=== PATIENT | male | born 1990 | race African-American/Black ===

== ENCOUNTER 2017-04-17 19:50 | Emergency (ER) | payer OTHER ==
[~2017-04-17] VITALS: Ht 175.3 cm; Wt 63.6 kg
[2017-04-17] MEDS ORDERED: ADACEL/BOOSTRIX VACCINE (DIPHTH/PERTUSS/ACELL/TETANUS)0.5ML SYR (90715) IM ONE (20:45)
[2017-04-17] MEDS ORDERED: CEPHALEXIN 500 MG CAP PO ONE (20:45)
[2017-04-17] MEDS ORDERED: KEFL500C17 PO (20:55)
[2017-04-17 21:21] VITALS: BP 133/84
== END 2017-04-17 21:40 | disposition home or self-care (01) ==
LOC: M ED 19:50
DX: S61.213A Laceration without foreign body of left middle finger without damage to nail, initial encounter (principal); S61.215A Laceration without foreign body of left ring finger without damage to nail, initial encounter; W26.9XXA Contact with unspecified sharp object(s), initial encounter; Y92.59 Other trade areas as the place of occurrence of the external cause; Y93.89 Activity, other specified; Y99.0 Civilian activity done for income or pay; J45.909 Unspecified asthma, uncomplicated; Z87.891 Personal history of nicotine dependence

== ENCOUNTER → 2017-08-12 | Outpatient (CLI) | payer OTHER ==
[2017-08-12 20:58] LABS: BASO % 0.5 % (0.0-1.0); EOS # 0.1 10^3/uL (0.0-0.50); EOS % 1.1 % (0.0-3.0); HEMATOCRIT 43.2 % (42.0-52.0); HEMOGLOBIN 14.3 g/dl (14.0-18.0); IMMATURE GRANULOCYTE % 0.2 % (0-0); LYMPH # 2.1 10^3/uL (1.5-6.5); LYMPH % 26.2 % (24.0-44.0); MEAN CORPUSCULAR HGB CONC 33.1 g/dl (32.0-36.5); MEAN CORPUSCULAR VOLUME 90.8 fl (80.0-96.0); MONO # 0.4 10^3/uL (0.0-0.8); MONO % 5.3 % (0.0-5.0); NEUTROPHILS # 5.5 10^3/uL (1.8-7.7); NEUTROPHILS % 66.7 % (36.0-66.0); PLATELET COUNT, AUTOMATED 218 10^3/uL (150-450); RED BLOOD COUNT 4.76 10^6/uL (4.30-6.10); RED CELL DISTRIBUTION WIDTH 13.1 % (11.5-14.5); WHITE BLOOD COUNT 8.2 10^3/uL (4.0-10.0)
[2017-08-12 21:06] LABS: ALBUMIN 4.8 GM/DL (3.2-5.2); ALBUMIN/GLOBULIN RATIO 1.37 (1.00-1.93); ALKALINE PHOSPHATASE 58 U/L (45-117); ALT/SGPT 23 U/L (12-78); ANION GAP 6 MEQ/L (8-16); AST/SGOT 24 U/L (7-37); BILIRUBIN,TOTAL 1.1 MG/DL (0.2-1.0); BLOOD UREA NITROGEN 17 MG/DL (7-18); CALCIUM LEVEL 9.3 MG/DL (8.5-10.1); CARBON DIOXIDE LEVEL 29 MEQ/L (21-32); CHLORIDE LEVEL 104 MEQ/L (98-107); CREATININE FOR GFR 1.01 MG/DL (0.70-1.30); GLOMERULAR FILTRATION RATE > 60.0 (>60); GLUCOSE, FASTING 70 MG/DL (70-100); POTASSIUM SERUM 4.2 MEQ/L (3.5-5.1); SODIUM LEVEL 139 MEQ/L (136-145); THYROID STIMULATING HORMONE 0.973 uIU/ML (0.358-3.740); TOTAL PROTEIN 8.3 GM/DL (6.4-8.2)
== END ==
LOC: M WUC 13:36
DX: R47.02 Dysphasia (principal); S61.431A Puncture wound without foreign body of right hand, initial encounter; X58.XXXA Exposure to other specified factors, initial encounter; Y92.89 Other specified places as the place of occurrence of the external cause
CPT/HCPCS: 84443

== ENCOUNTER → 2017-08-19 | Outpatient (CLI) | payer OTHER ==
[~2017-08-19] MED LIST: ISOVUE-370 76% 100ML VIAL (Q9967) As Ordered
== END ==
LOC: M RAD 08:11
DX: J38.1 Polyp of vocal cord and larynx (principal); R13.10 Dysphagia, unspecified
CPT/HCPCS: Q9967

== ENCOUNTER 2017-11-08 11:32 | Day surgery (SDC) | payer OTHER, SELFPAY ==
[2017-11-08] MEDS: LR 1,000 ML IV (12:00)
[2017-11-08] MEDS ORDERED: fentaNYL 100 MCG/2 ML INJECTION (J3010) As Ordered ×2 (12:48→14:29)
[2017-11-08] MEDS ORDERED: MIDAZOLAM INJ 2 MG/2 ML VIAL (J2250) As Ordered (12:48)
[2017-11-08] MEDS ORDERED: LIDOCAINE W/EPINEPHRINE 1% 20ML VIAL As Ordered (12:50)
[2017-11-08] MEDS ORDERED: REMIFENTANIL 1MG 3ML VIAL As Ordered (13:05)
[2017-11-08] MEDS ORDERED: PROPOFOL 200 MG/20 ML VIAL As Ordered (13:06)
[2017-11-08] MEDS ORDERED: dexameTHASONE 4 MG/ML 1ML VIAL (J1100) As Ordered ×2 (13:28)
[2017-11-08] MEDS ORDERED: LIDOCAINE 2% INJ 100 MG/5 ML SDV (FOR ANES.) As Ordered (13:29)
[2017-11-08] MEDS: dexameTHASONE 4 MG/ML 1ML VIAL (J1100) IV (13:40)
[2017-11-08] MEDS: OXYMETAZOLINE NASAL SPRAY (AFRIN) As Ordered (13:47)
[2017-11-08] MEDS ORDERED: ROCURONIUM BROMIDE 50 MG/5 ML VIAL As Ordered (14:16)
[2017-11-08] MEDS ORDERED: PROPOFOL 500 MG/50 ML VIAL As Ordered ×2 (14:26)
[2017-11-08] MEDS ORDERED: ONDANSETRON 4MG/2ML VIAL (J2405) As Ordered (14:57)
[2017-11-08] MEDS ORDERED: SUGAMMADEX SODIUM 500 MG/5 ML VIAL (BRIDION) As Ordered (14:58)
[2017-11-08] MEDS ORDERED: ONDANSETRON 4MG/2ML VIAL (J2405) IV (16:00)
[2017-11-08] MEDS ORDERED: LR 1,000 ML IV ×2 (16:00)
[2017-11-08] MEDS ORDERED: fentaNYL 100 MCG/2 ML INJECTION (J3010) IV (16:00)
[2017-11-08] MEDS: HYDROmorphone HCL 1 MG/ML SYRINGE (J1170) IV ×5 (16:08→16:28)
[2017-11-08] MEDS: PERCOCET 5MG/325MG TAB PO (16:53)
== END 2017-11-08 17:25 | disposition home or self-care (01) ==
LOC: M SDC 17:25
DX: J38.1 Polyp of vocal cord and larynx (principal); R49.0 Dysphonia; K21.9 Gastro-esophageal reflux disease without esophagitis; F17.210 Nicotine dependence, cigarettes, uncomplicated; J45.909 Unspecified asthma, uncomplicated
CPT/HCPCS: 31541

== ENCOUNTER 2018-11-20 13:19 | Emergency (ER) | payer OTHER ==
[~2018-11-20] VITALS: Ht 172.7 cm; Wt 59.0 kg
[~2018-11-20 13:19] MED LIST changes: -ISOVUE-370 76% 100ML VIAL (Q9967) As Ordered; +KEFL500C17 PO
[2018-11-20 13:28] VITALS: BP 128/84
[2018-11-20] MEDS ORDERED: CLAR5TAB7 PO (13:45)
== END 2018-11-20 14:10 | disposition home or self-care (01) ==
LOC: M ED 13:19
DX: H93.8X1 Other specified disorders of right ear (principal); H92.01 Otalgia, right ear

== ENCOUNTER → 2019-09-25 | Outpatient (CLI) | payer OTHER ==
[~2019-09-25] MED LIST changes: +CLAR5TAB7 PO
--- NOTE | 2019-09-25 13:48 | REP ---
SHOULDER: REASON: Sprain. COMPARISON: No priors. FINDINGS: Three views of the shoulder were performed. The acromioclavicular and glenohumeral relationships are within normal limits. There is no acute fracture or destructive osseous lesion. Electronically Signed by Rock Vizcarra DO 09/25/2019 02:45 P
--- NOTE | 2019-09-25 13:54 | REP ---
REASON: Neck pain for several years. No history of trauma. Vertebral body height and alignment is within normal limits. The facet joints are well aligned bilaterally. The disc spaces are symmetric throughout. There is no limitation of flexion or extension. The intervertebral foramina are ample bilaterally. The dens cannot be effectively evaluated secondary to the superimposition of osseous structures and/or dentition on all views. IMPRESSION: No abnormalities noted with limitations as described above. Electronically Signed by Rock Vizcarra DO 09/25/2019 02:45 P
== END ==
LOC: M WUC 11:19
PROVIDERS: ATTEND Physician Assistant
DX: S13.4XXA Sprain of ligaments of cervical spine, initial encounter (principal); S43.401A Unspecified sprain of right shoulder joint, initial encounter; W18.30XA Fall on same level, unspecified, initial encounter; Y92.9 Unspecified place or not applicable

== ENCOUNTER → 2020-04-28 | Outpatient (CLI) | payer OTHER ==
[~2020-04-28] MED LIST changes: +ISOVUE-370 76% 100ML VIAL As Ordered ONE
--- NOTE | 2020-04-28 17:27 | REPVR ---
PROCEDURE INFORMATION: Exam: CT Neck With Contrast Exam date and time: 04/28/2020 5:04 PM Age: 29 years old Clinical indication: Mass, lump, or swelling in neck; Additional info: Swelling, mass TECHNIQUE: Imaging protocol: Computed tomography images of the neck with intravenous contrast. Radiation optimization: All CT scans at this facility use at least one of these dose optimization techniques: automated exposure control; mA and/or kV adjustment per patient size (includes targeted exams where dose is matched to clinical indication); or iterative reconstruction. Contrast material: IOSVUE 370; Contrast volume: 75 ml; Contrast route: INTRAVENOUS (IV); COMPARISON: CT Neck with contrast 08/19/2017 8:38 AM FINDINGS: Paranasal sinuses: There is mild sinus mucosal disease, with no air-fluid level identified. Nasopharynx: Unremarkable. Oropharynx: Unremarkable. No significant tonsillar enlargement. Hypopharynx: Unremarkable. Larynx: Unremarkable. Normal epiglottis. Retropharyngeal space: Unremarkable. Submandibular/Parotid glands: Normal. Glands are normal in size. Thyroid: Normal. No enlarged or calcified nodules. Lymph nodes: Unremarkable. No lymphadenopathy. Trachea: Visualized trachea is unremarkable. Lungs: Unremarkable as visualized. Bones/joints: Unremarkable. No acute fracture. Soft tissues: Unremarkable. No significant soft tissue swelling. IMPRESSION: No acute abnormality identified. Electronically signed by: Pari Berumen On 04/28/2020 17:27:09 PM
== END ==
LOC: M RAD 16:44
PROVIDERS: ATTEND Otolaryngology
DX: R22.1 Localized swelling, mass and lump, neck (principal)
CPT/HCPCS: 70491; Q9967

== ENCOUNTER 2020-04-30 14:06 | Emergency (ER) | payer OTHER ==
[~2020-04-30] VITALS: Ht 170.2 cm; Wt 62.1 kg
[~2020-04-30 14:06] MED LIST changes: -ISOVUE-370 76% 100ML VIAL As Ordered ONE
[2020-04-30] MEDS ORDERED: KETOROLAC 30 MG/ML 1ML VIAL IV ONE (15:15)
[2020-04-30 15:34] LABS: BASO % 0.6 % (0.0-1.0); EOS # 0.3 10^3/uL (0.0-0.5); EOS % 4.1 % (0.0-3.0); HEMOGLOBIN 14.6 g/dl (13.5-17.5); LYMPH # 1.6 10^3/uL (1.5-5.0); LYMPH % 26.3 % (24.0-44.0); MEAN CORPUSCULAR HEMOGLOBIN 29.7 pg (27.0-33.0); MEAN CORPUSCULAR HGB CONC 32.4 g/dl (32.0-36.5); MEAN CORPUSCULAR VOLUME 91.5 fl (80.0-96.0); MONO # 0.4 10^3/uL (0.0-0.8); NEUTROPHILS # 3.8 10^3/uL (1.5-8.5); NEUTROPHILS % 61.8 % (36.0-66.0); PLATELET COUNT, AUTOMATED 204 10^3/uL (150-450); RED BLOOD COUNT 4.92 10^6/uL (4.30-6.10); WHITE BLOOD COUNT 6.2 10^3/uL (4.0-10.0)
--- NOTE | 2020-04-30 15:39 | REPVR ---
PROCEDURE INFORMATION: Exam: XR Right Shoulder Exam date and time: 04/30/2020 3:09 PM Age: 29 years old Clinical indication: Pain; Shoulder; Right; Additional info: Right pain, no known injury TECHNIQUE: Imaging protocol: XR Right shoulder. Views: 2 or more views. COMPARISON: CR SHOULDER COMPLETE 09/25/2019 11:30 AM FINDINGS: Bones/joints: No acute fracture. No osseous destruction. No periosteal reaction. No osseous erosion. No malalignment. Soft tissues: Unremarkable as visualized. IMPRESSION: Normal radiographic examination of the right shoulder. Electronically signed by: Shay Olguin On 04/30/2020 15:39:38 PM
--- NOTE | 2020-04-30 15:47 | REPVR ---
PROCEDURE INFORMATION: Exam: XR Chest, 2 Views Exam date and time: 04/30/2020 2:56 PM Age: 29 years old Clinical indication: Chest discomfort TECHNIQUE: Imaging protocol: XR of the chest Views: 2 views. COMPARISON: CT Neck with contrast 04/28/2020 5:12:23 PM FINDINGS: Lungs: No pulmonary mass, consolidation, or edema. Pleural space: No pleural effusion. No pneumothorax. Heart/Mediastinum: The cardiomediastinal silhouette is within normal limits for size and contour. Bones/joints: No acute osseous abnormality. IMPRESSION: No radiographic evidence of acute cardiopulmonary disease. Electronically signed by: Shay Olguin On 04/30/2020 15:47:09 PM
[2020-04-30 15:53] LABS: ERYTHROCYTE SEDIMENTATION RATE 2 mm/hr (0-15)
[2020-04-30 16:05] LABS: ALBUMIN 4.3 GM/DL (3.2-5.2); BILIRUBIN,DIRECT 0.1 MG/DL (0.0-0.2); BILIRUBIN,TOTAL 0.5 MG/DL (0.2-1.0); C REACTIVE PROTEIN QUANTITATIV 0.32 MG/DL (0.00-0.30); TOTAL PROTEIN 7.9 GM/DL (6.4-8.2)
[2020-04-30 16:20] VITALS: BP 131/87
--- NOTE | 2020-05-01 19:13 | ECGEPIP ---
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
== END 2020-04-30 16:42 | disposition home or self-care (01) ==
LOC: M ED 14:06
DX: M25.511 Pain in right shoulder (principal); M79.10 Myalgia, unspecified site; J45.909 Unspecified asthma, uncomplicated; Z79.899 Other long term (current) drug therapy

== ENCOUNTER 2020-09-05 21:49 | Emergency (ER) | payer OTHER ==
[~2020-09-05] VITALS: Ht 172.7 cm; Wt 65.9 kg
[2020-09-05 21:49] VITALS: BP 139/77
--- OUTSIDE RECORDS SUMMARY | 2020-09-05 21:55 | CCD | Continuity of Care Document ---
Author Author Nitesh JEREZ MD Organization Unknown Address [address] [facility] [address] [place] [address] Phone [phone] Care Team Providers Care Chemical Compounder Name Role Phone Elder Veronica AUTM Dorota Garcia D.O. AUTM Problems Active Problems Provider Date Allergic asthma without status asthmaticus Inocencio Jerez MD Onset: 2017 Localized swelling, mass and lump, neck Inocencio Jerez MD Onset: 11/15/2017 Difficulty speaking Inocencio Jerez MD Onset: 11/15/2017 Social History Type Date Description Comments Sex Unknown ETOH Use 1 A Month Tobacco Use Start: Unknown Non Smoker Allergies, Adverse Reactions, Alerts Description No Known Drug Allergies Medications Active Medications SIG Qnty Indications Ordering Provide r Date Fluticasone Propionate 50mcg/Act Suspension 2 sprays to each nostril daily 48gm J31.0 Inocencio rapp MD 06/24/2020 Saline Nasal [place] 0.65% Solution 2 sprays to each nostril three times a day and as needed 264ml J31.0 Inocencio Jerez MD 06/24/[address] 20 mg by mouth daily 90caps K21.9 Inocencio Jerez MD 04/22/2020 History Medications No Active Medications Unknown 12/2019 - 04/22/2020 Immunizations Description No Information Available Vital Signs Date Vital Result Comment 04/22/2020 1:41pm Height 68 inches 5'8" Weight 150.00 lb BMI (Body Mass Index) 22.8 kg/m2 [place] Body Weight 154 lb Weight 68.040 kg BSA (Body Surface Area) 1.81 m2 2017 1:53pm Height 68 inches 5'8" Weight 135.00 lb BMI (Body Mass Index) 20.5 kg/m2 [place] Body Weight 154 lb Weight 61.236 kg BSA (Body Surface Area) 1.73 m2 Results Description No Information Available Procedures Date Code Description Status 04/22/2020 93890 Laryngoscopy Flexible Fiberoptic Diagnostic Completed Medical Devices Description No Information Available Encounters Type Date Location Provider Dx Diagnosis Office Visit 04/22/2020 1:30p [facility] Inocencio Jerez MD J34.2 Deviated nasal septum R22.1 Localized swelling, mass and lump, neck K21.9 Gastro-esophageal reflux dis ease without esophagitis Assessments Date Code Description Provider 06/24/2020 R22.1 Localized swelling, mass and lum p, neck Inocencio Jerez MD 06/24/2020 J31.0 Chronic rhinitis Inocencio Jerez MD 06/24/2020 H69.93 Unspecified Eustachian tube diso rder, bilateral Inocencio Jerez MD 04/22/2020 J34.2 Deviated nasal septum Inocencio rapp MD 04/22/2020 R22.1 Localized swelling, mass and lum p, neck Inocencio Jerez MD 04/22/2020 K21.9 Gastro-esophageal reflux disease without esophagitis Inocencio Jerez MD Plan of Treatment 06/24/2020 - Inocencio Jerez MD* R22.1 Localized swelling, mass and lump, neck * J31.0 Chronic rhinitis* New Medication:* Fluticasone Propionate 50 mcg/Act - 2 sprays to each nostril daily * Saline Nasal [place] 0.65 % - 2 sprays to each nostril three times a day and as needed * H69.93 Unspecified Eustachian tube disorder, bilateral Functional Status Description No Information Available Mental Status Description No Information Available Referrals Description No Information Available
--- OUTSIDE RECORDS SUMMARY | 2020-09-05 21:55 | CCD ---
Author Author [facility] Organization [facility] Address Unknown Phone Unavailable Care Team Providers Care Rural Health Consultant Name Role Phone Hina JEREZ MD Unavailable Unavailable Hina JEREZ MD Unavailable Unavailable Hina JEREZ MD Unavailable Unavailable Hina JEREZ MD Unavailable Unavailable Hina JEREZ MD Unavailable Unavailable Hina JEREZ MD Unavailable Unavailable Hina JEREZ MD Unavailable Unavailable Hina JEREZ MD Unavailable Unavailable Hina JEREZ MD Unavailable Unavailable Hina JEREZ MD Unavailable Unavailable Hina JEREZ MD Unavailable Unavailable Hina JEREZ MD Unavailable Unavailable Hina JEREZ MD Unavailable Unavailable Hina JEREZ MD Unavailable Unavailable Hina JEREZ MD Unavailable Unavailable Hina JEREZ MD Unavailable Unavailable Hina JEREZ MD Unavailable Unavailable Hina JEREZ MD Unavailable Unavailable Hina JEREZ MD Unavailable Unavailable Hina JEREZ MD Unavailable Unavailable ELYSE, C GISEL MD Unavailable Unavailable ELYSE, C GISEL MD Unavailable Unavailable ELYSE, C GISEL MD Unavailable Unavailable ELYSE, C GISEL MD Unavailable Unavailable ELYSE, C GISEL MD Unavailable Unavailable ELYSE, C GISEL MD Unavailable Unavailable ELYSE, C GISEL MD Unavailable Unavailable ELYSE, C GISEL MD Unavailable Unavailable ELYSE, C GISEL MD Unavailable Unavailable ELYSE, C GISEL MD Unavailable Unavailable ELYSE, C GISEL MD Unavailable Unavailable ELYSE, C GISEL MD Unavailable Unavailable ELYSE, C GISEL MD Unavailable Unavailable ELYSE, C GISEL MD Unavailable Unavailable ELYSE, C GISEL MD Unavailable Unavailable LETTIERE, A JUSTINA PA Unavailable Unavailable LETTIERE, A JUSTINA PA Unavailable Unavailable LETTIERE, A JUSTINA PA Unavailable Unavailable LETTIERE, A JUSTINA PA Unavailable Unavailable LETTIERE, A JUSTINA PA Unavailable Unavailable LETTIERE, A JUSTINA PA Unavailable Unavailable LETTIERE, A JUSTINA PA Unavailable Unavailable LETTIERE, A JUSTINA PA Unavailable Unavailable LETTIERE, A JUSTINA PA Unavailable Unavailable LETTIERE, A JUSTINA PA Unavailable Unavailable LETTIERE, A JUSTINA PA Unavailable Unavailable LETTIERE, A JUSTINA PA Unavailable Unavailable LETTIERE, A JUSTINA PA Unavailable Unavailable LETTIERE, A JUSTINA PA Unavailable Unavailable LETTIERE, A JUSTINA PA Unavailable Unavailable LETTIERE, A JUSTINA PA Unavailable Unavailable LETTIERE, A JUSTINA PA Unavailable Unavailable LETTIERE, A JUSTINA PA Unavailable Unavailable LETTIERE, A JUSTINA PA Unavailable Unavailable LETTIERE, A JUTSINA PA Unavailable Unavailable LETTIERE, A JUSTINA PA Unavailable Unavailable LETTIERE, A JUSTINA PA Unavailable Unavailable LETTIERE, A JUSTINA PA Unavailable Unavailable LETTIERE, A JUSTINA PA Unavailable Unavailable LETTIERE, A JUSTINA PA Unavailable Unavailable LETTIERE, A JUSTINA PA Unavailable Unavailable LETTIERE, A JUSTINA PA Unavailable Unavailable LETTIERE, A JUSTINA PA Unavailable Unavailable LETTIERE, A JUSTINA PA Unavailable Unavailable Re-disclosure Warning The records that you are about to access may contain information from federally-assisted alcohol or drug abuse programs. If such information is present, then the following federally mandated warning applies: This information has been disclosed to you from records protected by federal confidentiality rules (42 CFR part 2). The federal rules prohibit you from making any further disclosure of this information unless further disclosure is expressly permitted by the written consent of the person to whom it pertains or as otherwise permitted by 42 CFR part 2. A general authorization for the release of medical or other information is NOT sufficient for this purpose. The Federal rules restrict any use of the information to criminally investigate or prosecute any alcohol or drug abuse patient.The records that you are about to access may contain highly sensitive health information, the redisclosure of which is protected by Article 27-F of the [facility] Public Health law. If you continue you may have access to information: Regarding HIV / AIDS; Provided by facilities licensed or operated by the [facility] Office of Mental Health; or Provided by the [facility] Office for People With Developmental Disabilities. If such information is present, then the following [facility] mandated warning applies: This information has been disclosed to you from confidential records which are protected by state law. State law prohibits you from making any further disclosure of this information without the specific written consent of the person to whom it pertains, or as otherwise permitted by law. Any unauthorized further disclosure in violation of state law may result in a fine or custodial sentence or both. A general authorization for the release of medical or other information is NOT sufficient authorization for further disc losure. Family History Family Member Name Family Member Gender Family Member Status Date o f Status Description Data Source(s) Unknown Unknown Problem [facility] ([facility], ) Unknown Unknown Problem [facility] ([facility]) Encounters Encounter Providers Location Date Indications Data Source(s ) Outpatient Attender: GISEL Jerez/Juliane/Bo/Fern weinberg 04/22/2020 01:30:00 PM EDT [facility] ([facility], ) Outpatient 10/18/2019 04:28:00 AM EDT [facility] Outpatient Attender: JUSTINA hall 08/31/2019 12:00:00 PM EST [facility] ([facility]) Medications Medication Brand Name Start Date Product Form Dose Route Admi nistrative Instructions Pharmacy Instructions Status Indications Reaction Description Data Source(s) Fluticasone Propionate Fluticasone Propionate 06/24/2020 12:00:[address] active [facility] ([facility], ) Sodium Chloride 0.111 MEQ/ML Nasal Solution Saline Nasal Spr ay 06/24/2020 12:00:00 AM EST active M EDENT ([facility], ) Omeprazole 20 MG Delayed Release Oral Capsule Omeprazole 04/22/2020 12:00:00 AM EDT ORAL active MED[facility] ([facility], ) No Active Medications 04/22/2020 12:00:00 AM EDT completed MED[facility] ([facility], ) Insurance Providers Payer name Policy type / Coverage type Policy ID Covered green party ID Covered green party's relationship to frias Policy Frias Plan Information [facility] COMMUNITY PLAN [place] [id number] SP [id number] [facility]) O [id number] S [id number] [facility] COMMUNITY [facility] [place] [id number] SP [id number] [facility]([place]) O [id number] S [id number] SELF PAY ONLY [id number] SP [id number] [facility] [id number] SP [id number] AETNA [id number] SP [id number] Aetna Commercial [id number] Self [id number] Aetna Ppo/Pos/Nap/MC Commercial [id number] Self [id number] [place]ANTRE[place] WC O [id number] S [id number] Aetna Commercial [id number] Self [id number] Aetna Commercial [id number] Self [id number] [place] [id number] S [id number] [employer] [place] [id number] SP [id number] Aetna Ppo/Pos/Nap/MC Commercial [id number] Self [id number] [employer] [place] [id number] SP [id number] Aetna Ppo/Pos/Nap/MC Commercial [id number] Self [id number] Aetna Ppo/Pos/Nap/MC Commercial [id number] Self 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 [id number] SP [id number] [employer] [place] [id number] SP [id number] Aetna Ppo/Pos/Nap/MC Medigap Part B Self Sentry Insurance Workers Compensation Self Surgeries/Procedures Procedure Description Date Indications Data Source(s) LARYNGOSCOPY FLEXIBLE FIBEROPTIC DIAGNOSTIC 04/22/2020 12:00:00 AM EDT [facility] ([facility]) Vital Signs ID Date Data Source UNK Name Value Range Interpretation Code Description Data Source(s) Body surface area Derived from formula 1.81 m2 1.81 m2 [facility] ([facility]) Body weight 68.040 kg 68.040 kg [facility] ([facility]) [place] body weight 154 [lb_av] 154 [lb_av] MEDEN T ([facility]) Body mass index (BMI) [Ratio] 22.8 kg/m2 22.8 k g/m2 [facility] ([facility]) Body weight 150.00 [lb_av] 150.00 [facility]_av] [facility] Body height 68 [in_i] 68 [in_i] [facility] ([facility]) 5'8" Body mass index (BMI) [Ratio] 19.0 kg/m2 19.0 k g/m2 [facility] ([facility]) Body height 68 [in_i] 68 [in_i] [facility] ([facility]) 5'8" Body weight 125.00 [lb_av] 125.00 [lb_av] MEDEN T ([facility]) Body temperature 99.2 [degF] 99.2 [degF] [facility] ([facility]) Oxygen saturation in Arterial blood by Pulse oximetry 99 % 99 % [facility] ([facility]) Respiratory rate 16 /min 16 /min [facility] ( [facility]) Heart rate 94 /min 94 /min [facility] ([facility], [facility]) Diastolic blood pressure 88 mm[Hg] 88 mm[Hg] [facility] ([facility]) Systolic blood pressure 124 mm[Hg] 124 mm[Hg] [facility])
[2020-09-05] MEDS ORDERED: BACITRACIN OINTMENT 30GM TUBE TOP ONE (22:45)
[2020-09-05] MEDS ORDERED: NORCO 5/325MG TABLET (BULK FOR ED) PO ONE (22:45)
[2020-09-05] MEDS ORDERED: HYDR-3715 PO (22:46)
[2020-09-05] MEDS ORDERED: BACI28.43 TOP (22:46)
--- OUTSIDE RECORDS SUMMARY | 2020-09-05 22:51 | CCD ---
Author Author [facility] Organization [facility] Address Unknown Phone Unavailable Care Team Providers Care Color Card Maker Name Role Phone Hina JEREZ MD Unavailable [...] C GISEL MD Unavailable Unavailable ELYSE, C GISLE MD Unavailable Unavailable ELYSE, C GISEL MD [...] is protected by Article 27-F of the [facility] Public Health law. If you continue you may have access to information: Regarding HIV / AIDS; Provided by facilities licensed or operated by the [facility] Office of Mental Health; or Provided by the [facility] Office for People With Developmental Disabilities. If such information is present, then the following [facility] mandated warning applies: This information has [...] law may result in a fine or mcc sentence or both. A general authorization for the release of medical or other information is NOT sufficient authorization for further disc losure. Family History Family Member Name Family Member Gender Family Member Status Date o f Status Description Data Source(s) Unknown Unknown Problem [facility] ([facility], ) Unknown Unknown Problem [facility] ([facility]) Encounters Encounter Providers Location Date Indications Data Source(s ) Outpatient Attender: GISEL Jerez/Juliane/Bo/Fern weinberg 04/22/2020 01:30:00 PM EDT [facility] ([facility], ) Outpatient 10/18/2019 04:28:00 AM EDT [facility] Outpatient Attender: JUSTINA hall 08/31/2019 12:00:00 PM EST [facility] ([facility]) Medications Medication Brand Name Start Date Product Form Dose Route Admi nistrative Instructions Pharmacy Instructions Status Indications Reaction Description Data Source(s) Fluticasone Propionate Fluticasone Propionate 06/24/2020 12:00:[address] active [facility] ([facility], ) Sodium Chloride 0.111 MEQ/ML Nasal Solution Saline Nasal Spr ay 06/24/2020 12:00:00 AM EST active M EDENT ([facility], ) Omeprazole 20 MG Delayed Release Oral Capsule Omeprazole 04/22/2020 12:00:00 AM EDT ORAL active [facility] ([facility], ) No Active Medications 04/22/2020 12:00:00 AM EDT completed [facility] ([facility], ) Insurance Providers Payer name Policy type / Coverage type Policy ID Covered green party ID Covered green party's relationship to frias Policy Frias Plan Information [facility] [id number] SP [id number] [facility]([place]) O [id number] S [id number] [facility] [id number] SP [id number] [facility]([place]) O [id number] S [id number] SELF PAY ONLY [id number] SP [id number] [facility] [id number] SP [id number] AETNA [id number] SP [id number] Aetna Commercial [id number] Self [id number] Aetna Ppo/Pos/Nap/MC Commercial [id number] Self [id number] POLLY [place]ANTRELL WC O [id number] S [id number] Aetna Commercial [id number] Self [id number] Aetna Commercial [id number] Self [id number] [employer] [place] O [id number] S [id number] [employer] [place] [id number] SP [id number] Aetna Ppo/Pos/Nap/MC Commercial [id number] Self [id number] [employer] [place] [id number] SP [id number] Aetna Ppo/Pos/Nap/MC Commercial [id number] Self [id number] Aetna Ppo/Pos/Nap/MC Commercial [id number] Self [id number] POLLY CANTRELL WORKER COMP [id number] SP [id number] [employer] [place] [id number] SP [id number] Aetna Ppo/Pos/Nap/MC Medigap Part B Self Sentry Insurance Workers Compensation Self Surgeries/Procedures Procedure Description Date Indications Data Source(s) LARYNGOSCOPY FLEXIBLE FIBEROPTIC DIAGNOSTIC 04/22/2020 12:00:00 AM EDT [facility] ([facility]) Vital Signs ID Date Data Source UNK Name Value Range Interpretation Code Description Data Source(s) Body surface area Derived from formula 1.81 m2 1.81 m2 [facility] ([facility]) Body weight 68.040 kg 68.040 kg [facility] ([facility]) [place] body weight 154 [lb_av] 154 [lb_av] MED[facility] T ([facility]) Body mass index (BMI) [Ratio] 22.8 kg/m2 22.8 k g/m2 [facility] ([facility]) Body weight 150.00 [lb_av] 150.00 [[facility]_av] [facility] Body height 68 [in_i] 68 [in_i] [facility] ([facility]) 5'8" Body mass index (BMI) [Ratio] 19.0 kg/m2 19.0 k g/m2 [facility] ([facility]) Body height 68 [in_i] 68 [in_i] [facility] ([facility]) 5'8" Body weight 125.00 [lb_av] 125.00 [lb_av] MED[facility] T ([facility], [facility]) Body temperature 99.2 [degF] 99.2 [degF] [facility] ([facility]) Oxygen saturation in Arterial blood by Pulse oximetry 99 % 99 % [facility] ([facility], [facility]) Respiratory rate 16 /min 16 /min [facility] ( [facility], [facility]) Heart rate 94 /min 94 /min [facility] ([facility], [facility]) Diastolic blood pressure 88 mm[Hg] 88 mm[Hg] [facility] ([facility], [facility]) Systolic blood pressure 124 mm[Hg] 124 mm[facility]Hg] [facility])
== END 2020-09-05 23:09 | disposition home or self-care (01) ==
LOC: M ED 21:49
DX: T23.201A Burn of second degree of right hand, unspecified site, initial encounter (principal); X10.2XXA Contact with fats and cooking oils, initial encounter; Y92.9 Unspecified place or not applicable; Y93.G1 Activity, food preparation and clean up; Y99.0 Civilian activity done for income or pay; F17.200 Nicotine dependence, unspecified, uncomplicated

== ENCOUNTER 2020-10-20 20:17 | Emergency (ER) | payer OTHER ==
[~2020-10-20] VITALS: Ht 172.7 cm; Wt 64.9 kg
[~2020-10-20 20:17] MED LIST changes: +BACI28.43 TOP; +HYDR-3715 PO
[2020-10-20 20:18] VITALS: BP 141/95
[2020-10-20] MEDS ORDERED: FLUTISP (20:23)
[2020-10-21] MEDS ORDERED: FLUORESCEIN OPHTH 1 MG STRIP OS ONE (01:00)
[2020-10-21] MEDS ORDERED: PROPARACAINE 0.5% OPHTH SOL 15ML OS ONE (01:00)
[2020-10-21] MEDS ORDERED: METAL LOCK LOOP XX ONE (02:17)
== END 2020-10-21 02:47 | disposition home or self-care (01) ==
LOC: M ED 20:17
DX: T15.12XA Foreign body in conjunctival sac, left eye, initial encounter (principal); Y92.098 Other place in other non-institutional residence as the place of occurrence of the external cause; F17.200 Nicotine dependence, unspecified, uncomplicated; Z79.899 Other long term (current) drug therapy

== ENCOUNTER 2020-11-13 10:15 | Outpatient (RCR) | payer OTHER ==
[~2020-11-13 10:15] MED LIST changes: +FLUTISP
== END 2020-11-14 ==
LOC: M PT 10:15
PROVIDERS: ATTEND Family Medicine
DX: M25.611 Stiffness of right shoulder, not elsewhere classified (principal)

== ENCOUNTER 2020-12-11 08:00 | Outpatient (RCR) | payer OTHER | END 2020-12-15 | LOC: M PT 08:00 | PROVIDERS: ATTEND Family Medicine | DX: M25.611 Stiffness of right shoulder, not elsewhere classified (principal) ==

== ENCOUNTER → 2021-01-05 | Outpatient (CLI) | payer OTHER ==
--- NOTE | 2021-01-05 14:57 | REPPI ---
INDICATION: M25.531 RIGHT WRIST PAIN. COMPARISON: None. TECHNIQUE: Five views including scaphoid views FINDINGS: There is no acute fracture or destructive osseous lesion. IMPRESSION: Within normal limits <Electronically signed by Rock Vizcarra > 01/05/21 [id number]
== END ==
LOC: M PLAIMG 13:58
PROVIDERS: ATTEND Family Medicine
DX: M25.531 Pain in right wrist (principal)

== ENCOUNTER → 2021-03-10 | Outpatient (CLI) | payer OTHER ==
--- NOTE | 2021-03-10 16:46 | REP ---
INDICATION: IMPINGEMENT SYNDROME RT SHOULDER, CATCHING IN SHOU. COMPARISON: None. TECHNIQUE: Coronal oblique T1 and fat suppressed T2. Sagittal oblique fat suppressed T2. Axial [id number] and T2 FLASH. FINDINGS: There is mild hypertrophic degenerative change seen involving the acromioclavicular joint. The acromion process is a minimal type 2. Patchy and linear T2 hyper signal is seen within the supraspinatus tendon without evidence of musculotendinous retraction or muscular atrophy. Normal appearing low signal is seen throughout the subscapularis, infraspinatus, and teres minor tendons. The biceps tendon resides within the bicipital groove. There is no glenohumeral joint effusion or abnormal fluid in the subcoracoid recess. The coracohumeral and coracoacromial ligaments appear thickened. Tiny T2 hyper signal foci are seen in the superolateral humeral head subjacent to the insertion of the supraspinatus tendon. IMPRESSION: 1. There is supraspinatus tendinitis/tendinosis. There is no evidence of a full-thickness tear. 2. Although there is mild AC joint DJD and a minimal type 2 acromion process there is evidence of ligamentous thickening as described above suggesting the clinical diagnosis of impingement syndrome. 3. Early cystic degenerative changes humeral head as described above. 4. Other findings as described above. If labral pathology is of clinical concern consider follow-up with shoulder MRI arthrography. <Electronically signed by Rock Vizcarra > 03/10/21 [id number]
== END ==
LOC: M PLAIMG 15:05
PROVIDERS: ATTEND Orthopaedic Surgery Sports Medicine
DX: M75.41 Impingement syndrome of right shoulder (principal)

== ENCOUNTER → 2021-04-27 | Outpatient (CLI) | payer OTHER | LOC: M LABSMTC 09:54 | PROVIDERS: ATTEND Anesthesiology | DX: Z01.818 Encounter for other preprocedural examination (principal); Z11.52 Encounter for screening for COVID-19 ==

== ENCOUNTER 2021-04-29 09:43 | Day surgery (SDC) | payer OTHER ==
[~2021-04-29] VITALS: Ht 172.7 cm; Wt 57.5 kg
[~2021-04-29 09:43] MED LIST changes: +LIDOCAINE 1% MDV 20ML VIAL SQ PRN; +LIDOCAINE 2% 100MG/5ML SDV (FOR ANES.) As Ordered ONE; +LR 1,000 ML IV ONE; +MIDAZOLAM INJ 2MG/2ML VIAL (J2250 PER 1MG) As Ordered ONE; +MIDAZOLAM INJ 2MG/2ML VIAL (J2250 PER 1MG) IV PRN; +ONDANSETRON 4MG/2ML VIAL As Ordered ONE; +ceFAZolin SOD 2 GM in IV 1 EA IV ONE; +dexameTHASONE 4 MG/ML 1ML VIAL (J1100 PER 1MG) As Ordered ONE; +fentaNYL 100 MCG/2 ML INJECTION (J3010) As Ordered ONE; +fentaNYL 100 MCG/2 ML INJECTION (J3010) IV PRN; +propofoL 200 MG/20 ML VIAL As Ordered ONE
[2021-04-29] MEDS ORDERED: EPINEPHrine INJ 1 MG/ML 1ML AMP XX ONE (10:50)
[2021-04-29] MEDS ORDERED: ROPIvacaine 0.5% 30ML INJECTION (J2795 PER 1MG) XX ONE (10:50)
[2021-04-29] MEDS ORDERED: LIDOCAINE 1% MDV 20ML VIAL XX ONE (10:50)
[2021-04-29] MEDS ORDERED: EPINEPHrine 1MG/ML INJ 30ML MD-VIAL As Ordered ONE (10:57)
[2021-04-29] MEDS ORDERED: LIDOCAINE 1% SDV 30ML VIAL As Ordered ONE (10:57)
[2021-04-29] MEDS ORDERED: dexameTHASONE 4 MG/ML 1ML VIAL (J1100 PER 1MG) As Ordered ONE (11:05)
[2021-04-29] MEDS ORDERED: ACETAMINOPHEN 1000MG 100ML IV BTL (OFIRMEV) (J0131 PER 10MG) As Ordered ONE (12:08)
[2021-04-29] MEDS ORDERED: KETOROLAC 60MG 2ML VIAL As Ordered ONE (12:10)
--- NOTE | 2021-04-29 13:12 | ROOPDOC ---
[facility] Report Of Operation Report of Operation DATE OF PROCEDURE: 04/29/21 PREPROCEDURE DIAGNOSES: Right shoulder impingement. POSTPROCEDURE DIAGNOSES: Same. PROCEDURE PERFORMED: Right shoulder arthroscopy, subacromial decompression. SURGEON: Dr. Nafisa Jaramillo MD BENCH EXAMINER: None ANESTHESIA: General anesthesia and preoperative block Dr Taylor. ESTIMATED BLOOD LOSS: Approximately 50 mL. COMPLICATIONS: None. REMARKS: None. FINDINGS: Moderate to high amount of bursitis and type II acromion SPECIMENS REMOVED: None PROCEDURE NOTE: This 30-year-old man had signs and symptoms consistent with right shoulder impingement. We had a discussion about the pros and cons risks and benefits in preoperative holding of conservative management versus proceeding with right shoulder arthroscopy subacromial decompression. He wished to go ahead. I marked the right upper extremity. He had no further questions.. DESCRIPTION OF PROCEDURE: Patient was brought to the operating room theater. He was placed supine on the operating room table. 2 g IV Ancef was administered prior to the start of the case. General anesthesia was induced. Patient placed right lateral decubitus with the aid of the beanbag positioner. SCDs on the legs. Axillary roll used. All bony prominences appropriately padded. Upper extremity prepped and draped in the usual sterile fashion Allowing over 3 minutes drying time prior to draping. 10 pounds of traction with the arm in abduction about 45 degrees was used. Preoperative timeout performed to confirm the site patient and the surgery. Began by making a posterior incision attempting to insert the arthroscope into the intra-articular space. This proved a little bit difficult. As such I first entered the subacromial space. Made an accessory lateral incision. I performed a complete bursectomy to the lateral gutters. There is a moderate to high amount of mostly inflammatory bursitis. I used shaving instruments as well as an ablator. I removed any soft tissue from the undersurface anterolateral acromion including taking down the CA ligament. There is moderate downsloping. I performed a subacromial decompression with a ijeoma for approximately 4 mm down to flat margins. I probed the superior surface of the rotator cuff. No obvious tears fraying or other damage. I then used upward slight pressure at the humerus, and then inserted the arthroscope into the intra-articular portion of the shoulder. I had to make an accessory posterior incision about 1 cm inferior to the original incision. I performed a thorough diagnostic arthroscopy. I used inside-out spinal needle localization to perform an accessory anterior portal through the rotator interval just posterior to the biceps tendon. There was a sublabral foramen from the 1 to 3 o'clock position. This appeared stable. No obvious labral tears. Cartilage on the glenoid and humeral head were normal. Biceps was stable and solid to probing no synovitis no split tears or instability of the biceps. No obvious SLAP tear I did probe the superior attachment of the biceps this appeared normal. Subscapularis appeared normal with negative lever push technique no obvious upper border fraying. Undersurface of the supraspinatus and rest of the rotator cuff tendons appeared normal. Normal bare area. Normal axillary recess. No obvious loose bodies or other abnormalities. Case was terminated, arthroscope withdrawn. Pictures taken and saved throughout the case onto the system. Wound thoroughly cleaned with wet and dry dressing. No local anesthesia was used and the patient had a preoperative block. Skin cleaned with wet and dry dressing followed application of Steri-Strips Adaptic 4 by 8 gauze abdominal pad dressings and cloth tape. Patient's upper extremity was placed into a sling. Patient was transferred supine woken up from general anesthetic transferred off the operating room table and taken to postanesthetic care unit in stable condition. All sponge needle instrument counts were correct no complications estimated blood loss 50 cc. Plan for the patient range of motion as tolerated gradually wean out of the sling over the next 1 to 2 weeks immediate pendulum exercises as well as hand wrist and elbow exercises. I explained this to the patient. Follow-up in the office in 2 weeks time. Discharge home according to when they are comfortable. Prescription has been sent to the pharmacy of choice [facility] in [facility]. Postoperative wound instructions were given. It was recommended to keep the wound clean and dry. Dressing changes as needed. It was reinforced with the patient that they should call us or be seen immediately for redness, drainage, or fever. Risk factors for harms from taking opioid medications discussed and assessed including but not limited to personal or family history of substance use disorder, anxiety or depression, , age 65 or older, COPD or other und erlying respiratory conditions, and renal or hepatic insufficiency. Discussed with patient concerns and determined any harms they may experience or be currently experiencing such as nausea or constipation, feeling sedated or confused, breathing interruptions during sleep, or taking or craving more opioids than prescribed or difficulty controlling use (addiction). Discussed early warning signs of overdose including confusion, sedation, slurred speech, abnormal gait. NAFISA JARAMILLO MD Apr 29, 2021 13:12
[2021-04-29] MEDS ORDERED: SUCCINYLCHOLINE 100 MG/5 ML SYRINGE (J0330) As Ordered ONE (13:25)
[2021-04-29] MEDS ORDERED: fentaNYL 100 MCG/2 ML INJECTION (J3010) IV PRN (13:50)
[2021-04-29] MEDS ORDERED: LR 1,000 ML IV SCH ×2 (13:50)
[2021-04-29] MEDS ORDERED: ONDANSETRON 4MG/2ML VIAL IV PRN ×2 (13:50→13:55)
[2021-04-29] MEDS ORDERED: ACETAMINOPHEN TAB 650MG DOSE (2X325MG) PO PRN (13:50)
[2021-04-29] MEDS ORDERED: METOCLOPRAMIDE INJ 10MG/2ML VIAL (J2765 PER 1) IV PRN (13:50)
[2021-04-29] MEDS ORDERED: oxyCODONE 5MG TAB PO PRN (13:50)
[2021-04-29] MEDS ORDERED: MORPHINE 2 MG/ML 1ML VIAL (J2270) IV PRN (13:55)
[2021-04-29] MEDS ORDERED: PERCOCET 5MG/325MG TAB PO PRN (13:55)
[2021-04-29 15:45] VITALS: BP 118/59
== END 2021-04-29 16:05 | disposition home or self-care (01) ==
LOC: M SDC 09:43
PROVIDERS: ATTEND Orthopaedic Surgery Sports Medicine
DX: M75.41 Impingement syndrome of right shoulder (principal); J45.909 Unspecified asthma, uncomplicated; Z79.899 Other long term (current) drug therapy
CPT/HCPCS: 29822; 29826; J0131; J0171; J0330; J0690; J1100; J1885; J2250; J2405; J2795; J3010

== ENCOUNTER 2021-06-15 09:20 | Outpatient (RCR) | payer OTHER ==
[~2021-06-15 09:20] MED LIST changes: -LIDOCAINE 1% MDV 20ML VIAL SQ PRN; -LIDOCAINE 2% 100MG/5ML SDV (FOR ANES.) As Ordered ONE; -LR 1,000 ML IV ONE; -MIDAZOLAM INJ 2MG/2ML VIAL (J2250 PER 1MG) As Ordered ONE; -MIDAZOLAM INJ 2MG/2ML VIAL (J2250 PER 1MG) IV PRN; -ONDANSETRON 4MG/2ML VIAL As Ordered ONE; -ceFAZolin SOD 2 GM in IV 1 EA IV ONE; -dexameTHASONE 4 MG/ML 1ML VIAL (J1100 PER 1MG) As Ordered ONE; -fentaNYL 100 MCG/2 ML INJECTION (J3010) As Ordered ONE; -fentaNYL 100 MCG/2 ML INJECTION (J3010) IV PRN; -propofoL 200 MG/20 ML VIAL As Ordered ONE
== END 2021-06-16 ==
LOC: M PT 09:20
PROVIDERS: ATTEND Orthopaedic Surgery Sports Medicine
DX: Z47.89 Encounter for other orthopedic aftercare (principal)

== ENCOUNTER 2021-06-18 09:35 | Outpatient (RCR) | payer OTHER | END 2021-07-17 | LOC: M PT 09:35 | PROVIDERS: ATTEND Orthopaedic Surgery Sports Medicine | DX: Z47.89 Encounter for other orthopedic aftercare (principal) ==